=== PATIENT | female | born 1945 | race Hispanic/Latino ===

== ENCOUNTER 2017-02-20 08:22 | Emergency (ER) | payer MEDICARE ==
[2017-02-20 08:29] VITALS: BMI 41.8
[2017-02-20 08:33] VITALS: TEMP 97.6
[2017-02-20] MEDS ORDERED: Sodium Chloride 0.9% 1,000 ML IV STA (09:28)
--- NOTE | 2017-02-20 09:29 | ED PDOC ---
Arrival/HPI - General Chief Complaint: Female Genitourinary Time Seen by Provider: 02/20/17 08:50 Historian: Patient - History of Present Illness Narrative History of Present Illness (Text): 02/20/17 09:25 This 72 yo female with pmh cva, tia, presents to this ED c/o vaginal bleeding x 2 days. Vaginal bleeding worsen yesterday. Patient has been on a cruise for over 7 days. Patient brought copies of blood test with Hg. 14.4. Patient stated her bleeding is 'a lot". Denies dizziness, abdominal pain, pelvic pain. Patient stated she started Plavix x 10 days ago. She admits a minor vaginal bleeding x 6 weeks ago, in which she forgot to mention her doctor prior Plavix. Time/Duration: Other (2 days) Context: Other (cruise) Past Medical History - Provider Review Nursing Documentation Reviewed: Yes - Reproductive Menopause: Yes - Cardiac Hx Cardiac Disorders: No - Pulmonary Hx Respiratory Disorders: No - Neurological Hx Neurological Disorder: Yes HX Cerebrovascular Accident: Yes Hx Transient Ischemic Attacks (TIA): Yes - Renal Hx Renal Disorder: No - Endocrine/Metabolic Hx Endocrine Disorders: No - Hematological/Oncological Hx Blood Disorders: No - Integumentary Hx Dermatological Disorder: No - Musculoskeletal/Rheumatological Hx Musculoskeletal Disorders: No - Gastrointestinal Hx Gastrointestinal Disorders: No - Genitourinary/Gynecological Hx Genitourinary Disorders: No - Psychiatric Hx Psychophysiologic Disorder: Yes Hx Anxiety: Yes Hx Substance Use: No Family/Social History - Physician Review Nursing Documentation Reviewed: Yes Family/Social History: No Known Family HX Smoking Status: Former Smoker Hx Alcohol Use: Yes Frequency of alcohol use: Socially Hx Substance Use: No Allergies/Home Meds Allergies/Adverse Reactions: Allergies alprazolam [From Xanax] Allergy (Verified 02/20/17 08:30) ANAPHYLAXIS meperidine [From Demerol] Allergy (Verified 02/20/17 08:30) ANAPHYLAXIS Home Medications: Home Meds Medication Instructions Recorded Confirmed Aspirin [Ecotrin] 325 mg PO DAILY 02/20/17 02/20/17 Atorvastatin [Lipitor] 10 mg PO DIN 02/20/17 02/20/17 Clopidogrel [Plavix] 75 mg PO DAILY 02/20/17 02/20/17 Review of Systems - Review of Systems Constitutional: Normal. absent: Fatigue, Weight Change, Fevers, Night Sweats Eyes: Normal ENT: Normal Respiratory: Normal Cardiovascular: Normal Gastrointestinal: Normal Genitourinary Female: Vaginal Bleeding Musculoskeletal: Normal Skin: Normal Neurological: Normal Endocrine: Normal Hemo/Lymphatic: Normal Psychiatric: Normal Physical Exam Vital Signs Temp Pulse Resp BP Pulse Ox 02/20/17 12:48 66 18 120/78 95 02/20/17 11:17 64 18 126/45 L 96 02/20/17 08:32 97.6 F 91 H 16 155/76 H 97 Temperature: Afebrile Blood Pressure: Normal Pulse: Regular Respiratory Rate: Normal Appearance: Positive for: Well-Appearing, Non-Toxic, Comfortable Pain Distress: None Mental Status: Positive for: Alert and Oriented X 3 - Systems Exam Head: Present: Atraumatic, Normocephalic Pupils: Present: PERRL Extroacular Muscles: Present: EOMI Conjunctiva: Present: Normal Mouth: Present: Moist Mucous Membranes Neck: Present: Normal Range of Motion Respiratory/Chest: Present: Clear to Auscultation, Good Air Exchange. No: Respiratory Distress, Accessory Muscle Use Cardiovascular: Present: Regular Rate and Rhythm, Normal S1, S2. No: Murmurs Abdomen: Present: Normal Bowel Sounds. No: Tenderness, Distention, Peritoneal Signs Genitourinary/Pelvic Exam: Present: Normal External Genitalia, Vaginal Bleeding (very mild), Cervical os Closed. No: Vaginal Discharge, Vaginal Lesions, Adenexal Tenderness, Odor Back: Present: Normal Inspection Upper Extremity: Present: Normal Inspection. No: Cyanosis, Edema Lower Extremity: Present: Normal Inspection. No: Edema Neurological: Present: GCS=15, CN II-XII Intact, Speech Normal Skin: Present: Warm, Dry, Normal Color. No: Rashes Psychiatric: Present: Alert, Oriented x 3, Normal Insight, Normal Concentration Medical Decision Making ED Course and Treatment: 02/20/17 12:19 Re-evaluation. Patient feels better. Discussed results and plan with patient who expresses understanding. All questions answered and there is agreement with the plan to discharge home with instructions. Patient stable for discharge. Return if symptoms persist or worsen. Re-evaluation Time: 12:19 Reassessment Condition: Re-examined, Improved - Lab Interpretations Lab Results: 02/20/17 10:21 02/20/17 10:55 Lab Results 02/20/17 11:39: Blood Type Confirm O POSITIVE 02/20/17 10:55: Sodium 137, Potassium 4.2, Chloride 107, Carbon Dioxide 23, Anion Gap 11, BUN 12, Creatinine 0.8, Est GFR ( Amer) > 60, Est GFR (Non- Af Amer) > 60, Random Glucose 100, Calcium 8.7, Total Bilirubin 0.4, AST 32, ALT 33, Alkaline Phosphatase 97, Total Protein 6.5, Albumin 3.5, Globulin 3.0, Albumin/Globulin Ratio 1.2 02/20/17 10:21: Blood Type O POSITIVE, Antibody Screen Negative, BBK History Checked No verified bt 02/20/17 10:21: WBC 7.7, RBC 4.75, Hgb 13.4, Hct 39.9, MCV 84.0, MCH 28.2, MCHC 33.6, RDW 15.5 H, Plt Count 279, MPV 12.1 H, Gran % 74.2 H, Lymph % (Auto) 19.1 L, [place] % (Auto) 5.9, Eos % (Auto) 0.4 L, Baso % (Auto) 0.4, Gran # 5.69, Lymph # 1.5, [place] # 0.5, Eos # 0.0, Baso # 0.03 I have reviewed the lab results: Yes Interpretation: No clinic. lab abnormalty - RAD Interpretation Narrative RAD Interpretations (Text): 02/20/17 12:25 Accession No. : [id number] Patient Name / ID : SHAWN SOTO / [id number] Exam Date : 02/20/2017 10:25:51 ( Approved ) Study Comment : Sex / Age : F / [id number] Creator : Abdoul Anaya MD Dictator : Abdoul Anaya MD Meter Installer : Flight Operations Inspector : Abdoul Anaya MD Approver2 : Report Date : 02/20/2017 11:31:30 My Comment : Pelvic ultrasound dated 02/20/2017. History: Vaginal bleeding. Transabdominal/transvaginal sonographic evaluation of the pelvis performed. No prior study available comparison. The uterus measures 8.4 x 4.7 x 4.4 cm. . There appears to be at least 1 discrete fibroid in the uterine body that measures approximately 2.1 x 2.0 x 2.3 cm. The endometrial stripe is abnormally thickened in a postmenopausal patient which measures approximately 1.6 cm. Rule out endometrial hyperplasia, polyps or endometrial carcinoma. Right ovary measures 4.7 x 3.4 x 4.3 cm and contains a relatively large cyst measuring approximately 4 cm x 3 cm x 4 cm. Right ovary exhibits arterial flow. The left ovary is not visualized. Impression: Thickened endometrium in a postmenopausal patient. Rule out endometrial hyperplasia, endometrial polyps or endometrial carcinoma. Large right ovarian cyst. Left ovary is not visualized These findings discussed with emergency room LENIN Figueroa at approximately 11:14 am with written down and read back verification Radiology Orders: 02/20/17 09:28 TRANSVAGINAL [US] Stat - Medication Orders Current Medication Orders: Discontinued Medications Sodium Chloride (Sodium Chloride 0.9%) 1,000 mls @ 1,000 mls/hr IV .Q1H STA Stop: 02/20/17 10:27 Last Admin: 02/20/17 09:52 Dose: 1,000 mls/hr Disposition/Present on Arrival - Present on Arrival Any Indicators Present on Arrival: No History of DVT/PE: No History of Uncontrolled Diabetes: No Urinary Catheter: No History of Decub. Ulcer: No History Surgical Site Infection Following: None - Disposition Have Diagnosis and Disposition been Completed?: Yes Diagnosis: Endometrial thickening on ultra sound, Postmenopausal vaginal bleeding Disposition: HOME/ ROUTINE Disposition Time: 12:26 Patient Plan: Discharge Condition: GOOD Additional Instructions: You need to see [facility] within this week for revaluation, and for further labs and imaging. Return to emergency if you develop fever, or worsen of vaginal bleeding. Referrals: [employer] Jacy Tijerina, [Non-Staff] - Follow up with primary Luis Morales [Medical Doctor] - Follow up with primary Forms: [employer] ([place])
[2017-02-20 10:29] LABS: BASO # 0.03 K/mm3 (0.0-2.0); BASO % 0.4 % (0.0-3.0); EOS % 0.4 % (1.5-5.0); GRAN # 5.69 (1.4-6.5); GRAN % 74.2 % (50.0-68.0); HEMOGLOBIN 13.4 gm/dL (12.0-16.0); LYMPH # 1.5 (1.2-3.4); LYMPH % 19.1 % (22.0-35.0); MEAN CORPUSCULAR HEMOGLOBIN 28.2 pg (25.0-35.0); MEAN CORPUSCULAR HGB CONC 33.6 g/dl (31.0-37.0); MEAN PLATELET VOLUME 12.1 fl (7.0-11.0); MONO # 0.5 (0.1-0.6); MONO % 5.9 % (1.0-6.0); PLATELET COUNT 279 10^3/uL (120.0-450.0); RBC 4.75 10^6/uL (3.5-6.1); RED CELL DISTRIBUTION WIDTH 15.5 % (11.5-14.5); WHITE BLOOD COUNT 7.7 10^3/ul (4.5-11.0)
[2017-02-20 11:15] LABS: ALB/GLOB RATIO 1.2 (1.1-1.8); ALBUMIN 3.5 g/dL (3.0-4.8); ALT/SGPT 33 U/L (7-56); AST/SGOT 32 U/L (15-39); BLOOD UREA NITROGEN 12 mg/dL (7-21); CALCIUM 8.7 mg/dL (8.4-10.5); GFR AFRICAN-AMERICAN > 60; GFR NON-AFRICAN AMERICAN > 60
[2017-02-20 11:28] VITALS: RESP 18
--- NOTE | 2017-02-20 11:32 | US ---
Pelvic ultrasound dated 02/20/2017. History: Vaginal bleeding. Transabdominal/transvaginal sonographic evaluation of the pelvis performed. No prior study available comparison. The uterus measures 8.4 x 4.7 x 4.4 cm. . There appears to be at least 1 discrete fibroid in the uterine body that measures approximately 2.1 x 2.0 x 2.3 cm. The endometrial stripe is abnormally thickened in a postmenopausal patient which measures approximately 1.6 cm. Rule out endometrial hyperplasia, polyps or endometrial carcinoma. Right ovary measures 4.7 x 3.4 x 4.3 cm and contains a relatively large cyst measuring approximately 4 cm x 3 cm x 4 cm. Right ovary exhibits arterial flow. The left ovary is not visualized. Impression: Thickened endometrium in a postmenopausal patient. Rule out endometrial hyperplasia, endometrial polyps or endometrial carcinoma. Large right ovarian cyst. Left ovary is not visualized These findings discussed with emergency room LENIN Figueroa at approximately 11:14 am with written down and read back verification
[2017-02-20 12:49] VITALS: BP 120/78; PULSE 66; O2SAT 95
== END 2017-02-20 12:49 | disposition home or self-care (01) ==
LOC: ED 08:22
DX: N93.8 Other specified abnormal uterine and vaginal bleeding (principal); R93.8 Abnormal findings on diagnostic imaging of other specified body structures
CPT/HCPCS: 76830; 80053; 85025; 86850; 86900; 96360; 99284; J7040